=== PATIENT | female | born 1990 | race American Indian/Alaskan Native ===

== ENCOUNTER 2016-06-13 21:07 | Outpatient (CLI) | payer MEDICAID ==
[2016-06-13 21:25] VITALS: BP 138/77
== END 2016-06-13 22:10 | disposition home or self-care (01) ==
LOC: TRG 21:07
PROVIDERS: ATTEND Obstetrics & Gynecology
DX: O47.1 False labor at or after 37 completed weeks of gestation (principal); Z3A.37 37 weeks gestation of pregnancy

== ENCOUNTER 2016-06-18 11:57 | Inpatient (IN) | payer MEDICAID ==
[2016-06-18] MEDS ORDERED: SUBLIMAZE IV PRN (12:09)
[2016-06-18] MEDS ORDERED: MINERAL OIL PO PRN (12:09)
[2016-06-18] MEDS ORDERED: ePHEDrine SULFATE IV PRN (12:09)
[2016-06-18] MEDS ORDERED: BRETHINE SUB-Q PRN (12:09)
--- NOTE | 2016-06-18 12:29 | History and Physical Report ---
History of Present Illness Date of examination: 06/18/16 Date of admission: 06/18/16 11:57 Chief complaint: Patient seen in office today, c/o painful ctx, SVE by Dr. Arizmendi 6cms. Direct admit for labor History of present illness: EDC Calculations by LMP: 07/02/2016 Past History : 3 Term Births: 2 Premature Births: 0 Living Children: 2 Para: 2 Mult. Births: 0 Prev : 0 Prev. attempt? 0 Aborta: 0 Elect. Ab: 0 Spont. Ab: 0 Ectopics: 0 # 1 Delivery date: 2011 Weeks Gestation: term labor: no Delivery type: Delivery location: [facility] Infant Sex: Male weight: 4kilos # 2 Delivery date: 2014 Weeks Gestation: term labor: no Delivery type: Delivery location: [facility] Sex: Male weight: 5#9oz Past Medical History: Negative Past Medical History Past Surgical History: negative Past Medical History Anesthesia Complications: negative Anemia: negative Autoimmune Disorder: negative Bleeding Disorder: negative Blood Transfusions: negative Breast Disease: negative Diabetes: negative Heart Disease: negative Hypertension: negative Hepatitis/Liver Disease: negative Kidney Disease/UTI: negative Neurologic/Epilepsy/Migraines: negative Phlebitis/Varicosities: negative Psychiatric: negative Pulmonary Disease/Asthma: negative Thyroid Disease: negative Hospitalizations: negative Surgery (Non-statistics manager): negative Abnormal PAP: negative JACQUELYN Exposure: negative Infertility: negative Uterine Anomaly: negative Uterine Surgery (not C/S): negative Other Gynecologic Problems: negative Infection History Hx of STD: none HIV Risk Eval: low risk Hepatitis B Risk Eval: low risk Personal hx. of genital herpes: no Partner hx. of genital herpes: no Rash, Viral, or Febrile illness since last LMP? no Varicella/Chicken Pox Status: Unknown TB Risk: no Genetic History Congenital Heart Defect: Mom: no Dad: no [place] Disease: Mom: no Dad: no Thalassemia Mom: no Dad: no Neural Tube Defect Mom: no Dad: no Down's Syndrome Mom: no Dad: no Shai-Sachs Mom: no Dad: no Sickle Cell Disease/Trait Mom: no Dad: no Hemophilia Mom: no Dad: no Muscular Dystrophy Mom: no Dad: no Cystic Fibrosis Mom: no Dad: no [place] Chorea Mom: no Dad: no Mental Retardation Mom: no Dad: no Fragile X Mom: no Dad: no Other Genetic/Chromosomal Disorder Mom: no Dad: no Child w/other defect Mom: no Dad: no Enviromental Exposures Xray Exposure: no Medication, drug, or alcohol use since LMP: no Chemical/Other Exposure: no Exposure to Cat Liter: no Hx of Parvovirus (Fifth Disease): no Occupational Exposure to Children: none Current Allergies: No known allergies Past History Past Medical History: no pertinent history Social history: no significant social history - Obstetrical History Expected Date of Delivery: 07/02/16 Actual Gestation: 38 Week(s) 0 Day(s) : 3 Para: 2 Hx # Term Pregnancies: 2 Number of Pregnancies: 0 Spontaneous Abortions: 0 Induced : 0 Number of Living Children: 2 Medications and Allergies Allergies Allergy/AdvReac Type Severity Reaction Status Date / Time No Known Allergies Allergy Verified 12/31/15 01:45 Home Medications Medication Instructions Recorded Confirmed Last Taken Type Acetaminophen [Acetaminophen ER 650 mg PO Q8HR PRN #60 tablet.er 04/04/15 Unknown Rx TAB] Penicillin Vk [Veetids TAB] 500 mg PO QID #40 tablet 04/04/15 Unknown Rx Acetaminophen/Codeine [Tylenol #3] 1 tab PO Q6H PRN #20 tab 07/16/15 Unknown Rx Acyclovir [Zovirax Tab] 800 mg PO 5XD #50 tab 07/16/15 Unknown Rx Ibuprofen [Motrin] 600 mg PO Q8H PRN #40 tablet 07/16/15 Unknown Rx Prednisone [predniSONE 10 mg 10 mg PO .TAPER #1 tab.ds.pk 07/16/15 Unknown Rx (6-Day Pack, 21 Tabs)] Review of Systems All systems: negative - Physical Exam Breasts: Positive: normal Cardiovascular: Regular rate Lungs: Positive: Clear to auscultation, Normal air movement Abdomen: Positive: normal appearance, soft, normal bowel sounds Genitourinary (Female): Positive: normal external genitalia, normal perenium Vulva: both: normal Vagina: Positive: normal moisture Uterus: Positive: normal size Anus/Rectum: Positive: normal perianal skin Extremities: Positive: normal - Obstetrical FHR: auscultation normal Uterine Contraction Monitor Mode: External Cervical Dilatation: 6 (Per Dr. Arizmendi in office) Cervical Effacement Percentage: 80 station: 0 Results All other labs normal. Assessment and Plan 26y/o @ 38 weeks, complicated by + AFP for DS (negative NIPT by [facility]). GBS +. Orders in EMR, anticipate - Patient Problems (1) 38 weeks gestation of Current Visit: Yes Status: Acute (2) Active labor at term Current Visit: Yes Status: Acute (3) Positive GBS test Current Visit: Yes Status: Acute Plan to address problem: Antibiotics q4h until delivery
[2016-06-18] MEDS ORDERED: XYLOCAINE 2% INFILTRATI ONE (13:00)
[2016-06-18] MEDS ORDERED: LACTATED RINGERS 1,000 ML IV SCH (13:00)
[2016-06-18] MEDS ORDERED: PITOCin/NS 30 UNIT/500ML 30 UNITS/500 ML BAG IV SCH (13:00)
[2016-06-18] MEDS ORDERED: PITOCin/NS 20 UNIT/1000ML DRIP 20 UNITS/1,000 ML BAG IV SCH ×2 (13:00→21:40)
[2016-06-18] MEDS ORDERED: POLYCILLIN/NS 2 GM/100 ML 2 GM/100 ML BAG IV ONE (13:00)
[2016-06-18 13:48] LABS: Hematocrit 30.9 % (30.3-42.9); Hemoglobin 9.8 gm/dl (10.1-14.3); Mean Corpuscular HGB Conc 32 % (30-34); Platelet Count 132 K/mm3 (140-440); Red Blood Count 4.56 M/mm3 (3.65-5.03); Red Cell Distribution Width 17.4 % (13.2-15.2); White Blood Count 6.3 K/mm3 (4.5-11.0)
[2016-06-18 14:02] LABS: Mean Corpuscular Hemoglobin 22 pg (28-32); Mean Corpuscular Volume 68 fl (79-97)
[2016-06-18] MEDS ORDERED: POLYCILLIN/NS 1 GM/50 ML 1 GM/50 ML BAG IV SCH (16:10)
--- NOTE | 2016-06-18 16:53 | Event Note ---
Date: 06/18/16 AROM clear fluid, vertex, no change in cervix since admission. AROM clear. Plan to continue increasing pitocin as needed for adequate labor. patient denies need for epidural at this time.
--- NOTE | 2016-06-18 18:43 | Progress Note ---
Assessment and Plan patient requesting IV sedation, laboring well. Anticipate . Good support at bs - Patient Problems (1) 38 weeks gestation of Current Visit: Yes Status: Acute (2) Active labor at term Current Visit: Yes Status: Acute (3) Positive GBS test Current Visit: Yes Status: Acute Plan to address problem: second dose of ampicillin infusing now Subjective - Subjective Date of service: 06/18/16 Principal diagnosis: IUP @ 38wks, Labor Interval history: EDC Calculations by LMP: 07/02/2016 Past History : 3 Term Births: 2 Premature Births: 0 Living Children: 2 Para: 2 Mult. Births: 0 Prev : 0 Prev. attempt? 0 Aborta: 0 Elect. Ab: 0 Spont. Ab: 0 Ectopics: 0 # 1 Delivery date: 2011 Weeks Gestation: term labor: no Delivery type: Delivery location: [facility] Infant Sex: Male weight: 4kilos # 2 Delivery date: 2015 Weeks Gestation: term labor: no Delivery type: Delivery location: [facility] Sex: Male weight: 5#9oz Past Medical History: Negative Past Medical History Past Surgical History: negative Past Medical History Anesthesia Complications: negative Anemia: negative Autoimmune Disorder: negative Bleeding Disorder: negative Blood Transfusions: negative Breast Disease: negative Diabetes: negative Heart Disease: negative Hypertension: negative Hepatitis/Liver Disease: negative Kidney Disease/UTI: negative Neurologic/Epilepsy/Migraines: negative Phlebitis/Varicosities: negative Psychiatric: negative Pulmonary Disease/Asthma: negative Thyroid Disease: negative Hospitalizations: negative Surgery (Non-rotor balancer): negative Abnormal PAP: negative JACQUELYN Exposure: negative Infertility: negative Uterine Anomaly: negative Uterine Surgery (not C/S): negative Other Gynecologic Problems: negative Infection History Hx of STD: none HIV Risk Eval: low risk Hepatitis B Risk Eval: low risk Personal hx. of genital herpes: no Partner hx. of genital herpes: no Rash, Viral, or Febrile illness since last LMP? no Varicella/Chicken Pox Status: Unknown TB Risk: no Genetic History Congenital Heart Defect: Mom: no Dad: no [place] Disease: Mom: no Dad: no Thalassemia Mom: no Dad: no Neural Tube Defect Mom: no Dad: no Down's Syndrome Mom: no Dad: no Shai-Sachs Mom: no Dad: no Sickle Cell Disease/Trait Mom: no Dad: no Hemophilia Mom: no Dad: no Muscular Dystrophy Mom: no Dad: no Cystic Fibrosis Mom: no Dad: no [place] Chorea Mom: no Dad: no Mental Retardation Mom: no Dad: no Fragile X Mom: no Dad: no Other Genetic/Chromosomal Disorder Mom: no Dad: no Child w/other defect Mom: no Dad: no Enviromental Exposures Xray Exposure: no Medication, drug, or alcohol use since LMP: no Chemical/Other Exposure: no Exposure to Cat Liter: no Hx of Parvovirus (Fifth Disease): no Occupational Exposure to Children: none Current Allergies: No known allergies Patient reports: loss of fluid, movement normal, contractions Objective - Vital Signs Vital Signs: Vital Signs - 12hr 06/18/16 06/18/16 06/18/16 13:26 13:27 13:31 Temperature 98.0 F Pulse Rate 91 H 95 H 98 H Pulse Rate [ 91 H From Monitor] Respiratory 18 Rate Blood Pressure 132/82 Blood Pressure 132/82 [Left Arm] O2 Sat by Pulse 100 100 100 Oximetry 06/18/16 06/18/16 06/18/16 13:36 13:41 13:46 Temperature Pulse Rate 94 H 99 H 94 H Pulse Rate [ From Monitor] Respiratory Rate Blood Pressure Blood Pressure [Left Arm] O2 Sat by Pulse 100 100 100 Oximetry 06/18/16 06/18/16 06/18/16 16:14 16:19 16:24 Temperature 97.9 F Pulse Rate 104 H 99 H 96 H Pulse Rate [ 102 H From Monitor] Respiratory 18 Rate Blood Pressure 130/82 Blood Pressure 130/82 [Left Arm] O2 Sat by Pulse 100 100 100 Oximetry 06/18/16 06/18/16 06/18/16 16:29 16:34 16:39 Temperature Pulse Rate 112 H 92 H 102 H Pulse Rate [ From Monitor] Respiratory Rate Blood Pressure Blood Pressure [Left Arm] O2 Sat by Pulse 100 99 100 Oximetry 06/18/16 06/18/16 06/18/16 16:44 16:49 16:51 Temperature Pulse Rate 114 H 104 H 63 Pulse Rate [ From Monitor] Respiratory Rate Blood Pressure Blood Pressure [Left Arm] O2 Sat by Pulse 100 99 55 L Oximetry 06/18/16 06/18/16 06/18/16 16:54 16:58 16:59 Temperature Pulse Rate 87 100 H 100 H Pulse Rate [ From Monitor] Respiratory Rate Blood Pressure Blood Pressure [Left Arm] O2 Sat by Pulse 100 94 100 Oximetry 06/18/16 06/18/16 06/18/16 17:04 17:08 17:09 Temperature Pulse Rate 97 H 92 H 95 H Pulse Rate [ From Monitor] Respiratory Rate Blood Pressure Blood Pressure [Left Arm] O2 Sat by Pulse 100 77 L 100 Oximetry 06/18/16 06/18/16 06/18/16 17:14 17:19 17:24 Temperature Pulse Rate 96 H 96 H 95 H Pulse Rate [ From Monitor] Respiratory Rate Blood Pressure Blood Pressure [Left Arm] O2 Sat by Pulse 99 99 100 Oximetry 06/18/16 06/18/16 06/18/16 17:29 17:34 17:39 Temperature Pulse Rate 105 H 96 H 105 H Pulse Rate [ From Monitor] Respiratory Rate Blood Pressure Blood Pressure [Left Arm] O2 Sat by Pulse 100 100 100 Oximetry 06/18/16 06/18/16 06/18/16 17:44 17:49 17:54 Temperature Pulse Rate 105 H 96 H 108 H Pulse Rate [ From Monitor] Respiratory Rate Blood Pressure Blood Pressure [Left Arm] O2 Sat by Pulse 100 100 100 Oximetry 06/18/16 06/18/16 06/18/16 17:59 18:01 18:04 Temperature Pulse Rate 101 H 104 H 108 H Pulse Rate [ From Monitor] Respiratory Rate Blood Pressure Blood Pressure [Left Arm] O2 Sat by Pulse 100 87 100 Oximetry 06/18/16 06/18/16 06/18/16 18:08 18:09 18:14 Temperature Pulse Rate 50 L 102 H 106 H Pulse Rate [ From Monitor] Respiratory Rate Blood Pressure Blood Pressure [Left Arm] O2 Sat by Pulse 58 L 100 100 Oximetry 06/18/16 06/18/16 06/18/16 18:18 18:19 18:24 Temperature Pulse Rate 108 H 102 H 96 H Pulse Rate [ From Monitor] Respiratory Rate Blood Pressure Blood Pressure [Left Arm] O2 Sat by Pulse 88 100 100 Oximetry 06/18/16 06/18/16 06/18/16 18:29 18:34 18:39 Temperature Pulse Rate 115 H 107 H 101 H Pulse Rate [ From Monitor] Respiratory Rate Blood Pressure Blood Pressure [Left Arm] O2 Sat by Pulse 100 100 100 Oximetry - Exam Breasts: normal Cardiovascular: Regular rate Lungs: Clear to auscultation, Normal air movement Abdomen: Present: normal appearance, soft Vulva: both: normal Uterus: Present: normal FHR: category 1 Uterine Contraction Monitor Mode: External Cervical Dilatation: 7 Cervical Effacement Percentage: 90 station: -1 Uterine Contraction Frequency (min): 1.5-2.5 Uterine Contraction Duration: 60-70 Uterine Contraction Pattern: Regular Uterine Tone Measurement Phase: Contraction Uterine Contraction Intensity: Moderate Extremities: normal - Labs Labs: Abnormal Labs 06/18/16 13:22 Hgb 9.8 L MCV 68 L MCH 22 L RDW 17.4 H Plt Count 132 L Laboratory Results - last 24 hr 06/18/16 06/18/16 13:22 13:24 WBC 6.3 RBC 4.56 Hgb 9.8 L Hct 30.9 MCV 68 L MCH 22 L MCHC 32 RDW 17.4 H Plt Count 132 L Blood Type A POSITIVE Antibody Screen Negative
--- NOTE | 2016-06-18 20:15 | Procedure Note ---
OB Delivery Note - Delivery Date of Delivery: 06/18/16 ( Male) [employer] Technician: SHAUNA OVALLES Estimated blood loss: 300cc - Vaginal Delivery presentation: vertex Delivery position: OA (RAMIRO) Intrapartum events: none Delivery induction: none Delivery augmentation: rupture of membranes, pitocin Delivery monitor: external FHT, external uterine Route of delivery: Delivery placenta: spontaneous Delivery cord: 3 umbilical vessels Episiotomy: none Delivery laceration: none Anesthesia: none Delivery comments: male del RAMIRO over intact perineum, placed skin to skin. 3 vessel cord clamped and cut, placenta del intact and complete. Pit to IVF. No lacerations to repair. EBL 300, 's weight 6#6oz, apgars 8/9. Mother and remain LDR stable. - Infant A at 1 minute: 8 at 5 minutes: 9 Gender: Male (6#6oz)
[2016-06-18] MEDS ORDERED: DULCOLAX PR PRN (21:40)
[2016-06-18] MEDS ORDERED: TUCKS PAD TP PRN (21:40)
[2016-06-18] MEDS ORDERED: LANSINOH TP PRN (21:40)
[2016-06-18] MEDS ORDERED: NORCO 5/325 PO PRN (21:40)
[2016-06-18] MEDS ORDERED: BENADRYL PO PRN (21:40)
[2016-06-18] MEDS ORDERED: DERMOPLAST TP PRN (21:40)
[2016-06-18] MEDS ORDERED: PHENERGAN PO PRN (21:40)
[2016-06-18] MEDS ORDERED: MILK OF MAGNESIA PO PRN (21:40)
[2016-06-18] MEDS ORDERED: SODIUM CHLORIDE FLUSH SYRINGE 10 ML IV NR (21:40)
[2016-06-18] MEDS ORDERED: TYLENOL PO PRN (21:40)
[2016-06-18] MEDS ORDERED: ZOFRAN IV PRN (21:40)
[2016-06-18] MEDS: COLACE PO SCH (22:25)
[2016-06-18] MEDS: MOTRIN PO SCH (23:40)
[2016-06-19] MEDS ORDERED: BOOSTRIX IM ONE (06:00)
[2016-06-19 06:23] LABS: Hematocrit 26.4 % (30.3-42.9); Hemoglobin 8.6 gm/dl (10.1-14.3)
--- NOTE | 2016-06-19 07:02 | Progress Note ---
Assessment and Plan - Patient Problems (1) Spontaneous vaginal delivery Onset Date: ~06/18/16 Current Visit: Yes Status: Acute Plan to address problem: Pt resting quietly No c/o voiced VSS FF below umb Lochia small Perineum intact H &H 8.6/26.4 chronic anemia drop r/t blood loss from del. Pt is asymptomatic. P: continue pathway PO Iron Cont assessment for any s/sx of anemia. Dr. Cottrell to be given report (2) Anemia Current Visit: Yes Status: Chronic Qualifiers: Anemia type: iron deficiency Iron deficiency anemia type: I Vitamin B12 deficiency anemia type: V Folate deficiency anemia type: F Bone marrow failure anemia type: B Hemolytic anemia type: H Other causes of anemia: O Qualified Code(s): D50.8 - Other iron deficiency anemias Plan to address problem: PO Iron ordered BID Subjective - Subjective Date of service: 06/19/16 (pt w/o complaint) Principal diagnosis: Patient reports: appetite normal, voiding normally, pain well controlled, ambulating normally : doing well Objective - Vital Signs Latest vital signs: Vital Signs Temp Pulse Pulse Resp BP BP Pulse Ox 06/19/16 04:45 98.4 F 94 H 22 116/60 06/19/16 00:45 98.3 F 88 18 120/67 06/18/16 21:45 98.2 F 94 H 18 131/71 06/18/16 20:53 98.2 F 18 06/18/16 20:42 83 138/78 06/18/16 20:27 100 H 135/78 06/18/16 20:13 100 H 139/75 06/18/16 19:34 105 H 99 06/18/16 19:29 109 H 100 06/18/16 19:24 110 H 98 06/18/16 19:21 98.4 F 20 06/18/16 19:20 108 H 129/74 06/18/16 19:19 102 H 100 06/18/16 19:14 119 H 100 06/18/16 19:09 103 H 100 06/18/16 19:04 100 H 100 06/18/16 18:59 104 H 100 06/18/16 18:54 106 H 98 06/18/16 18:49 101 H 98 06/18/16 18:44 103 H 99 03/15/17 18:39 101 H 20 100 0315/17 18:34 107 H 100 0315/17 18:29 115 H 100 0315/17 18:24 96 H 100 0315/17 18:19 102 H 100 0315/17 18:18 108 H 88 15/17 18:14 106 H 100 0315/17 18:09 102 H 100 0315/17 18:08 50 L 58 L 17 18:04 108 H 100 15/17 18:01 104 H 87 0315/17 17:59 101 H 100 15/17 17:54 108 H 100 0315/17 17:49 96 H 100 0315/17 17:44 105 H 100 0315/17 17:39 105 H 100 0315/17 17:34 96 H 100 15/17 17:29 105 H 100 0315/17 17:24 95 H 100 15/17 17:19 96 H 99 15/17 17:14 96 H 99 15/17 17:09 95 H 100 15/17 17:08 92 H 77 L 17 17:04 97 H 100 0315/17 16:59 100 H 100 0315/17 16:58 100 H 94 0315/17 16:54 87 100 15/17 16:51 63 55 L 15/17 16:49 104 H 99 0315/17 16:44 114 H 100 0315/17 16:39 102 H 100 0315/17 16:34 92 H 99 15/17 16:29 112 H 100 0315/17 16:24 96 H 100 15/17 16:19 99 H 100 0315/17 16:14 97.9 F 104 H 102 H 18 130/82 130/82 100 0315/17 13:46 94 H 100 0315/17 13:41 99 H 100 0315/17 13:36 94 H 100 0315/17 13:31 98 H 100 15/17 13:27 98.0 F 95 H 91 H 18 132/82 132/82 100 15/17 13:26 91 H 100 Intake and Output 15/17 03/15/17 03/16/17 14:59 22:59 06:59 Intake Total 1789 480 Output Total 200 1600 Balance 1589 -1120 Intake: Intake, Free Water 480 Other 1789 Output: Urine 200 1600 Void 200 1600 Other: Intake, Other Source Saline Solution Total, Intake Amount 1789 Total, Output Amount 200 800 # Voids Void 1 1 Weight 173 lb Estimated Blood Loss 300 Patient Weight 06/19/16 06:59 Weight 173 lb - Exam Breasts: Present: Cardiovascular: Present: Regular rate Lungs: Present: Normal air movement Abdomen: Present: normal appearance, soft Vulva: both: normal Uterus: Present: normal, firm, fundal height below umbilicus Extremities: Present: normal Deep Tendon Reflex Grade: Normal +2 - Labs Labs: Abnormal lab results 06/18/16 06/19/16 Range/Units 13:22 05:22 Hgb 9.8 L 8.6 L (10.1-14.3) gm/dl Hct 26.4 L (30.3-42.9) % MCV 68 L (79-97) fl MCH 22 L (28-32) pg RDW 17.4 H (13.2-15.2) % Plt Count 132 L (140-440) K/mm3
[2016-06-19] MEDS ORDERED: FLUARIX QUAD 2016-2017(36 MOS+) IM ONE (12:00)
[2016-06-19] MEDS: MOTRIN PO SCH (12:52)
[2016-06-19] MEDS: COLACE PO SCH (12:53)
--- NOTE | 2016-06-19 12:53 | Admit Criteria Form ---
Admission Criteria Documentation: OBSTETRIC AND GYNECOLOGIC DISEASE GRG Clinical Indications for Admission to Inpatient Care (Place 'X' for any and all applicable criteria): Hospital admission is needed for appropriate care of the patient because of ANY ONE of the following (1)(2)(3): [ ]I. Hemodynamic instability, as indicated by ALL of the following (1)(2)(3)( 4)(5): [ ]a) Vital signs or other findings not as expected for chronic patient condition or baseline [ ]b) Instability indicated by ANY ONE of the following: [ ]i) Hypotension [ ]ii) Symptomatic tachycardia unresponsive to treatment (eg, analgesia, fluids, sedation as indicated) [ ]iii) Inadequate perfusion indicated by ANY ONE of the following: [ ]A. Lactic acidosis (greater than 2 mmol/ L) [ ]B. New abnormal capillary refill ( greater than 3 seconds) [ ]C. Reduced urine output [ ]D. New altered mental status [ ]iv) Orthostatic vital sign changes unresponsive to treatment (eg, fluids) [ ]v) Multiple IV fluid boluses required to maintain adequate blood pressure or perfusion [ ]vi) IV inotropic or vasopressor medication required to maintain adequate blood pressure or perfusion [ ]II. Obstetric infection requiring hospitalization indicated by ANY ONE of the following(13)(14): [ ]a) Chorioamnionitis [ ]b) Endometritis (except mild endometritis) [ ]c) Pelvic abscess [ ]d) Peritonitis [ ]e) Septic pelvic thrombophlebitis [ ]III. Amniotic fluid or pulmonary embolism(4)(5)(6) [ ]IV. Suspected peritonitis or ectopic requiring monitoring beyond scope of 24 hours or observation care(7)(8) [ ]V. compromise requiring hospitalization indicated by ALL of the following(9)(10): [ ]a) compromise indicated by ANY ONE of the following(11): [ ]i) Abnormal heart rate monitoring [ ]ii) Abnormal contraction stress test [ ]iii) Abnormal biophysical profile [ ]iv) Abnormal Doppler flow in vessels (ie, Doppler velocimetry) (12) [ ]b) Persistence of compromise indicators during evaluation and observation monitoring [ ]. Ovarian hyperstimulation syndrome requiring hospitalization[A] indicated by ALL of the following(15): [ ]a) Recent ovarian stimulation with gonadotropins, or evidence on ultrasound of spontaneous emergence of large number of ovarian follicles [ ]b) Evidence of severe ovarian hyperstimulation syndrome indicated by ANY ONE of the following: [ ]i) Abdominal pain unresponsive to oral therapy [ ]ii) Acute respiratory distress syndrome [ ]iii) Electrolyte imbalance ( eg, hyponatremia, hyperkalemia) [ ]iv) Elevated liver enzymes [ ]v) Evidence of thromboembolism [ ]vi) Hemoconcentration (hematocrit greater than 45 % (0.45)) [ ]vii) Inability to maintain oral intake adequate to prevent hemoconcentration [ ]viii) Marked hypotension from baseline (eg, SBP 20 mmHg below patients usual pressure) [ ]ix) Oliguria or anuria [ ]x) Ovarian torsion [ ]xi) Pleural or pericardial effusion on x-ray or echocardiogram [ ]xii) Rapid increase in serum creatinine to greater than 1.2 mg/dL (106 micromoles/L) or creatinine clearance less than 50 mL/min/1.73m2 (0.84 mL/ sec/1.73m2) [ ]xiii) Ruptured ovarian cyst with hemorrhage [ ]xiv) Severe abdominal pain or peritoneal signs [ ]xv) Tense ascites that cannot be managed with paracentesis in outpatient setting [ ]VII.Pelvic infection requiring hospitalization indicated by ANY ONE of the following (16): [ ]a) Outpatient treatment has failed or is not appropriate (eg, inpatient monitoring required) [ ]b) Pelvic abscess [ ]c) Surgical emergency cannot be excluded (eg, rigid abdomen) [ ]d) Vomiting precluding outpatient and observation care management VIII. loss complications requiring inpatient medical treatment indicated by ANY ONE of the following (4)(7)(9): [ ]a) Fever [ ]b) Peritonitis [ ]c) Sepsis [ ]d) Severe abdominal pain [ ]IX. or patient requiring monitoring for severe heart failure, pulmonary disease, or other comorbid condition (eg, peripartum cardiomyopathy) (4)(17) [ ]X. patient with rupture of membranes requiring hospitalization indicated by ANY ONE of the following: [ ]a) Chorioamnionitis, cloudy amniotic fluid, or other evidence of infection [ ]b) compromise or other need for monitoring (11) [ ]c) Gestation longer than 23 weeks and ANY ONE of the following: [ ]i) Abnormal (noncephalic) presentation [ ]ii) Inadequate home environment (eg, home too far from hospital, unable to rapidly return to hospital) [ ]d) Temperature greater than 100.4 degrees F (38 degrees C)( oral) [ ]e) Threatened labor requiring monitoring beyond scope (eg, over 24 hours) of observation Care [ ] XI. complications, including severe lacerations, infections, or retained placenta (19) [ ] XII.Uterine bleeding with high-risk features indicated by ANY ONE of the following (4): [ ]a) Active major hemorrhage (eg, hemorrhage) [ ]b) Coagulopathy with active bleeding [ ]c) Gestational trophoblastic disease (eg, molar ) (20 ) [ ]d) (longer than 23 weeks) and ANY ONE of the following: [ ]i) Pain [ ]ii) Placental abruption, known or suspected [ ]iii) Placenta accrete, known or suspected(21) [ ]iv) Placenta previa, known or suspected [ ]v) Vasa previa [ ]e) Severe anemia [X ]XIII. Obstetric or Gynecologic Disease, condition or symptom for which ANY ONE of the following: [ X]a) Emergency and observation care have failed or are not considered appropriate ( Also use General Criteria: Observation Care Criteria as appropriate) [X ]b) Presence of a General Admission Criteria or Pediatric General Admission Criteria The original [facility] [employer] content created by [facility] has been revised. The portions of the content which have been revised are identified through the use of italic text or in bold, and [facility] has neither reviewed nor approved the modified material.All other unmodified content is copyright [facility]. Please see references footnoted in the original [facility] edition 2016 Admission Criteria Met: Yes
[2016-06-19] MEDS: FEOSOL PO SCH (12:54)
[2016-06-19] MEDS: PRENATAL VITAMIN PO SCH (12:54)
[2016-06-20] MEDS: MOTRIN PO SCH
--- NOTE | 2016-06-20 08:49 | Progress Note ---
Assessment and Plan patient doing well, no complaints. desires d/c home today. Lochia scant, denies problems with or pain. VSSAF, H&H stable (preexisting anemia - asymptomatic) plan for d/c home today. - Patient Problems (1) 38 weeks gestation of Current Visit: Yes Status: Resolved (2) Active labor at term Current Visit: Yes Status: Resolved (3) Positive GBS test Current Visit: Yes Status: Resolved (4) Spontaneous vaginal delivery Onset Date: ~06/18/16 Current Visit: Yes Status: Acute (5) Anemia Current Visit: Yes Status: Chronic Qualifiers: Anemia type: iron deficiency Iron deficiency anemia type: inadequate dietary iron intake Vitamin B12 deficiency anemia type: V Folate deficiency anemia type: F Bone marrow failure anemia type: B Hemolytic anemia type: H Other causes of anemia: O Qualified Code(s): D50.8 - Other iron deficiency anemias Subjective - Subjective Date of service: 06/20/16 Principal diagnosis: day #2 s/p Interval history: EDC Calculations by LMP: 07/02/2016 Past History : 3 Term Births: 2 Premature Births: 0 Living Children: 2 Para: 2 Mult. Births: 0 Prev : 0 Prev. attempt? 0 Aborta: 0 Elect. Ab: 0 Spont. Ab: 0 Ectopics: 0 # 1 Delivery date: 2012 Weeks Gestation: term labor: no Delivery type: Delivery location: [facility] Infant Sex: Male weight: 4kilos # 2 Delivery date: 2015 Weeks Gestation: term labor: no Delivery type: Delivery location: [facility] Sex: Male weight: 5#9oz Past Medical History: Negative Past Medical History Past Surgical History: negative Past Medical History Anesthesia Complications: negative Anemia: negative Autoimmune Disorder: negative Bleeding Disorder: negative Blood Transfusions: negative Breast Disease: negative Diabetes: negative Heart Disease: negative Hypertension: negative Hepatitis/Liver Disease: negative Kidney Disease/UTI: negative Neurologic/Epilepsy/Migraines: negative Phlebitis/Varicosities: negative Psychiatric: negative Pulmonary Disease/Asthma: negative Thyroid Disease: negative Hospitalizations: negative Surgery (Non-factory 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 of genital herpes: no Partner hx. of genital herpes: no Rash, Viral, or Febrile illness since last LMP? no Varicella/Chicken Pox Status: Unknown TB Risk: no Genetic History Congenital Heart Defect: Mom: no Dad: no [place] Disease: Mom: no Dad: no Thalassemia Mom: no Dad: no Neural Tube Defect Mom: no Dad: no Down's Syndrome Mom: no Dad: no Shai-Sachs Mom: no Dad: no Sickle Cell Disease/Trait Mom: no Dad: no Hemophilia Mom: no Dad: no Muscular Dystrophy Mom: no Dad: no Cystic Fibrosis Mom: no Dad: no [place] Chorea Mom: no Dad: no Mental Retardation Mom: no Dad: no Fragile X Mom: no Dad: no Other Genetic/Chromosomal Disorder Mom: no Dad: no Child w/other defect Mom: no Dad: no Enviromental Exposures Xray Exposure: no Medication, drug, or alcohol use since LMP: no Chemical/Other Exposure: no Exposure to Cat Liter: no Hx of Parvovirus (Fifth Disease): no Occupational Exposure to Children: none Current Allergies: No known allergies Patient reports: appetite normal, voiding normally, pain well controlled, ambulating normally, no dizzy ambulation, no nauseated [place]: doing well, nursing well Objective - Vital Signs Latest vital signs: Vital Signs Temp Pulse Resp BP 06/20/16 00:00 98.4 F 68 20 128/62 06/19/16 16:45 97.6 F 74 20 120/74 Intake and Output 06/19/16 06/20/16 06/20/16 22:59 06:59 14:59 Intake Total 480 240 Balance 480 240 Intake: Oral 240 240 Intake, Free Water 240 Other: Total, Intake Amount 240 240 # Voids Void 1 1 - Exam Breasts: Present: normal Cardiovascular: Present: Regular rate Lungs: Present: Clear to auscultation, Normal air movement Abdomen: Present: normal appearance, soft, normal bowel sounds Vulva: both: normal Uterus: Present: normal, firm, fundal height at umbilicus Extremities: Present: normal
--- NOTE | 2016-06-20 08:51 | Discharge Summary ---
Providers - Providers Date of Admission: 06/18/16 11:57 Date of discharge: 06/20/16 (desires d/c home) Attending physician: MARGUERITE BIANCHI 06/18/16 21:40 Consult to Manager Storage [CONS] Routine Reason For Exam: assistance with , SNS Primary care physician: KAT ARCE Hospitalization Reason for admission: active labor Delivery: Episiotomy: none Laceration: none Other procedures: none complications: none Discharge diagnosis: IUP at term delivered baby: male Hospital course: uncomplicated vaginal Condition at discharge: Good Disposition: DISCHARGED TO HOME OR SELFCARE - Discharge Diagnoses (1) 38 weeks gestation of Status: Resolved (2) Active labor at term Status: Resolved (3) Positive GBS test Status: Resolved (4) Spontaneous vaginal delivery Status: Acute (5) Anemia Status: Chronic Qualifiers: Anemia type: iron deficiency Iron deficiency anemia type: inadequate dietary iron intake Vitamin B12 deficiency anemia type: V Folate deficiency anemia type: F Bone marrow failure anemia type: B Hemolytic anemia type: H Other causes of anemia: O Qualified Code(s): D50.8 - Other iron deficiency anemias Plan - Discharge Medications Prescriptions: Ferrous Sulfate [Feosol 325 MG tab] 325 mg PO TID #90 tablet Ibuprofen [Motrin 800 MG tab] 800 mg PO Q8HR PRN #30 tablet PRN Reason: Pain Lidocain2.5%/Prilocai2.5% [Emla] 5 gm TP ONCE PRN #1 tube PRN Reason: Pain - Provider Discharge Summary Activity: routine, no sex for 6 weeks, no heavy lifting 4 weeks, no strenuous exercise Diet: routine Instructions: routine Additional instructions: [] Smoking cessation referral if applicable(refer to patient education folder for contact #) [] Refer to [facility] Booklet Call your doctor immediately for: * Fever > 100.5 * Heavy vaginal bleeding ( >1 pad per hour) * Severe persistent headache * Shortness of breath * Reddened, hot, painful area to leg or breast * Drainage or odor from incision. * Keep incision clean and dry at all times and follow doctor's instructions regarding bathing/showering - Follow up plan Follow up: KAT ARCE MD [Primary Care Provider] - 7 Days (Congratulations! Please call [phone] to schedule your son's circumcision and your visit in 4 weeks. Bring EMLA cream to your son's visit and await further instructions. Call for any questions or concerns. )
[2016-06-20] MEDS: PRENATAL VITAMIN PO SCH (10:38)
[2016-06-20] MEDS: FEOSOL PO SCH (10:38)
[2016-06-20] MEDS: COLACE PO SCH ×2 (10:38→11:00)
[2016-06-20 14:55] VITALS: BP 112/60
== END 2016-06-20 23:07 | disposition home or self-care (01) | DRG 775 ==
LOC: LD 11:57 → OB 21:33
PROVIDERS: ADMIT Obstetrics & Gynecology; ATTEND Obstetrics & Gynecology
PROC: 10907ZC Drainage of Amniotic Fluid, Therapeutic from Products of Conception, Via Natural or Artificial Opening (ICD-10-PCS; principal; 2016-06-18)
PROC: 10E0XZZ Delivery of Products of Conception, External Approach (ICD-10-PCS; principal; 2016-06-18)
DX: O99.02 Anemia complicating childbirth (principal); D50.8 Other iron deficiency anemias; O99.820 Streptococcus B carrier state complicating pregnancy; Z3A.38 38 weeks gestation of pregnancy; Z37.0 Single live birth
CPT/HCPCS: 36415; 85014; 85018; 85027; 85049; 86592; 86850; 86900; 86901; 90686; 99211; G0463; J0290; J2590; J3010; J7120